=== PATIENT | male | born 1950 | race Two or more races ===

== ENCOUNTER 2019-07-08 03:58 | Emergency (ER) | payer OTHER ==
[~2019-07-08] VITALS: Ht 180.3 cm; Wt 90.7 kg
[2019-07-08] MEDS ORDERED: ATACAND4 MG (04:06)
[2019-07-08] MEDS ORDERED: LEVOTHYROXINE25 MCG (04:06)
[2019-07-08] MEDS ORDERED: NORVASC2.5 M1 (04:06)
[2019-07-08] MEDS ORDERED: PRILOSEC OTC20 MG (04:06)
[2019-07-08] MEDS ORDERED: DICY20TA PO (11:46)
[2019-07-08] MEDS ORDERED: PROTONIX40 MG PO (11:46)
== END 2019-07-08 12:39 | disposition home or self-care (01) ==
LOC: ER 03:58
DX: K29.60 Other gastritis without bleeding (principal)